=== PATIENT | female | born 1950 | race Caucasian/White ===

== ENCOUNTER → 2016-12-11 | Outpatient (CLI) | payer OTHER | LOC: FIMAGING 12:43 | PROVIDERS: ATTEND Family Medicine | DX: D25.1 Intramural leiomyoma of uterus (principal); R93.8 Abnormal findings on diagnostic imaging of other specified body structures; N83.202 Unspecified ovarian cyst, left side ==

== ENCOUNTER → 2017-03-23 | Outpatient (CLI) | payer OTHER | LOC: FIMAGING 14:11 | PROVIDERS: ATTEND Family Medicine | DX: R93.8 Abnormal findings on diagnostic imaging of other specified body structures (principal); D25.2 Subserosal leiomyoma of uterus; N83.202 Unspecified ovarian cyst, left side; N95.0 Postmenopausal bleeding; Z79.890 Hormone replacement therapy ==

== ENCOUNTER 2017-04-25 05:59 | Day surgery (SDC) | payer OTHER ==
--- NOTE | 2017-04-12 16:33 | GHP ---
[f rep st] PREOP HISTORY AND PHYSICAL DATE OF ADMISSION: 04/25/2017 ADMITTING DIAGNOSES: 1. Postmenopausal bleeding. 2. Thickened endometrium. HISTORY OF PRESENT ILLNESS: The patient is a 66-year-old nulliparous, who presented from her PCP's office with complaints of postmenopausal bleeding and a persistent thickened lining on ultrasound. Patient has been on hormone replacement therapy for 10 years, currently on 0.5 mg of estradiol daily and 100 mg of progesterone 3 times a week, as well as testosterone and doing well. Her first episode of spotting was noted October 2016 for 5 days, mostly when she wiped. Ultrasound done in November showed endometrial stripe to 8 mm with a leiomyomatous uterus and a left simple cyst 2.3 x 1.6 cm. Endometrial biopsy was done per patient and negative. Her progesterone use was increased to daily. She noticed she has put on 10 pounds and has headaches. Repeat ultrasound still shows a thickened lining despite the progesterone at 9 mm, decreased size in fibroids and decreased size in left simple cyst. She states the last episode of spotting was on April 08. She does state that she has pinkish spotting 3-4 days 2-3 times each month since October. PAST OBSTETRIC HISTORY: She is nulliparous. PAST GYNECOLOGIC HISTORY: Age of menarche was 10. She is postmenopausal, age 53. She is has been on hormone replacement therapy for 10 years now. The patient states she has not had any history of abnormal Pap smears and denies any exposure to sexually transmitted diseases. Last Pap was October 2016. Last mammogram 2 years ago and bone density 4 years ago. PAST MEDICAL HISTORY: Seasonal allergies, GERD, migraines with aura and stress urinary incontinence. PAST SURGICAL HISTORY: Laparoscopic cholecystectomy in the and a left bunionectomy 2004. CURRENT MEDICATIONS: Prilosec, Claritin, estradiol, progesterone, testosterone , vaginal cream. ALLERGIES: Penicillin and cephalosporin, reaction hives. FAMILY HISTORY: Mother and brother with hypertension. Mother with lung cancer and father with Duncan's, as well as Alzheimer disease. Both mother and father are . REVIEW OF SYSTEMS: A 10-point review of systems is negative. Pertinent positives noted in HPI. SOCIAL HISTORY: Patient is in a monogamous relationship. She is a retired nurse. She is on low-carb Mediterranean diet. Denies any tobacco use. Drinks alcohol 1-3 times per week. Denies any illicit drug use. Exercise 5-7 days per week. PHYSICAL EXAM: VITAL SIGNS: Stable. Patient is afebrile. GENERAL: Well- nourished, well-developed female. Alert oriented x3. No apparent distress. CARDIOVASCULAR: Regular rate and rhythm. LUNGS: Clear to auscultation bilaterally. ABDOMEN: Soft, nontender, nondistended. PELVIC: Deferred. EXTREMITIES: Normal to inspection, without edema. ASSESSMENT AND PLAN: Patient is a 66-year-old with postmenopausal bleeding and persistent thickened endometrium. 1. Discussed proceeding with surgery for both diagnostic and therapeutic treatment. Will proceed with a diagnostic hysteroscopy and a D and C. 2. Discussed its limitations, n.p.o. status and postop recovery. Surgical consents were obtained. Discussed risks, benefits and alternatives of surgery including, but not limited to, bleeding, infection and risk of uterine perforation. 3. Patient understands all risks of surgery and wants to proceed at this time. Surgery is scheduled for April 25 at 7:30 a.m. 4. Patient is allergic to penicillin. We will treat with clindamycin lemon picker to OR. 5. Sequential compression devices for deep venous thrombosis prophylaxis. /[id number]/MODL MTDD
[2017-04-25] MEDS ORDERED: CLINDAMYCIN 900 MG/DEXTROSE 50 ML IV ONE (06:00)
[2017-04-25] MEDS ORDERED: LR 1,000 ML IV SCH (06:09)
[2017-04-25] MEDS ORDERED: LR 1,000 ML IV ONE (06:20)
[2017-04-25] MEDS ORDERED: LIDOCAINE 1% 2 ML INJ ID PRN (06:20)
[2017-04-25 06:41] VITALS: PULSE 69
--- NOTE | 2017-04-25 06:47 | PDHPUP ---
History & Physical Update H&P update statement: This history and physical update is based on an assessment of the patient which was completed after admission or registration (within 24 hours), but prior to the surgery/procedure. H&P update: H&P reviewed & patient examined, no change in patient's condition since H&P completed
[2017-04-25] MEDS ORDERED: SILVER NITRATE APPLICATOR 1 APPL TP ONE (06:50)
[2017-04-25] MEDS ORDERED: MIDAZOLAM 2 MG/2 ML VIAL IVP ONE (06:57)
--- NOTE | 2017-04-25 06:59 | PDANEPAE ---
ANE History of Present Illness here for Hysteroscopy ANE Past Medical History - Cardiovascular History Hx Hypertension: No Hx Arrhythmias: No Hx Chest Pain: No Hx Coronary Artery / Peripheral Vascular Disease: No Hx CHF / Valvular Disease: No Hx Palpitations: No - Pulmonary History Hx COPD: No Hx Asthma/Reactive Airway Disease: No Hx Recent Upper Respiratory Infection: No Hx Oxygen in Use at Home: No Hx Sleep Apnea: No Sleep Apnea Screening Result - Last Documented: Negative - Neurologic History Hx Cerebrovascular Accident: No Hx Seizures: No Hx Dementia: No Neurologic History Comment: MIGRAINES - Endocrine History Hx Diabetes: No - Renal History Hx Renal Disorders: Yes Renal History Comment: STRESS INCONT MILD - Liver History Hx Hepatic Disorders: Yes Hepatic History Comment: CHOLECYSTECTOMY - Neurological & Psychiatric Hx Hx Neurological and Psychiatric Disorders: No - Cancer History Hx Cancer: No Cancer History Comment: PRE CA LESIONS - Congenital Disorder History Hx Congenital Disorders: No - GI History Hx Gastrointestinal Disorders: Yes Gastrointestinal History Comment: GERD - Other Health History Other Health History: SEASONAL ALLERGIES - Chronic Pain History Chronic Pain: No - Surgical History Prior Surgeries: LAP BARRON 1994. L BUNIONECTOMY 2004 ANE Review of Systems Review of systems is: negative Review of Systems: - Exercise capacity Exercise capacity: >=4 METS METS (RN): 5 METS ANE Patient History - Allergies Allergies/Adverse Reactions: Cephalosporins Allergy (Intermediate, Verified 04/13/17 11:53) Hives Penicillins Allergy (Intermediate, Verified 04/13/17 11:53) Hives - Home Medications Home medications: home medication list seen and reviewed Home Medications: Claritin 04/13/17 [Last Taken 04/23/17] Estradiol 04/13/17 [Last Taken 04/24/17 19:00] Herbals/Supplements -Info Only 04/13/17 [Last Taken 04/18/17] Prilosec 20 mg 04/13/17 [Last Taken 04/18/17] Progesterone 04/13/17 [Last Taken 04/18/17] Testosterone 04/13/17 [Last Taken 04/18/17] - NPO status NPO Status: no food or drink >8 hours NPO Since - Liquids (Date): 04/24/17 NPO Since - Liquids (Time): 20:00 NPO Since - Solids (Date): 04/24/17 NPO Since - Solids (Time): 19:00 - Anes Hx Anes Hx: no prior problems - Smoking Hx Smoking Status: Former smoker - Family Anes Hx Family Hx Anesthesia Complications: NEG ANE Labs/Vital Signs - Vital Signs Blood Pressure: 148/83 Heart Rate: 69 Respiratory Rate: 16 O2 Sat (%): 97 Height: 167.64 cm Weight: 67.585 kg ANE Physical Exam - Airway Neck exam: FROM Mallampati Score: Class 1 - Pulmonary Pulmonary: no respiratory distress - Cardiovascular Cardiovascular: regular rate and rhythym - ASA Status ASA Status: II ANE Anesthesia Plan Anesthesia Plan: GA with mask
[2017-04-25] MEDS ORDERED: PROPOFOL/EMULSION 500 MG/50 ML BOTTLE IV ONE (07:03)
[2017-04-25] MEDS ORDERED: fentaNYL 100 MCG/2 ML INJ ONE (07:06)
[2017-04-25] MEDS ORDERED: ONDANSETRON 4 MG/2 ML VIAL ONE (07:07)
[2017-04-25] MEDS ORDERED: NALOXONE HCL 0.4 MG/ML INJ IVP PRN (07:32)
[2017-04-25] MEDS ORDERED: ONDANSETRON 4 MG/2 ML VIAL IVP PRN (07:32)
[2017-04-25] MEDS ORDERED: HYDROmorphONE/DILAUDID 1 MG/ML INJ IVP PRN (07:32)
[2017-04-25] MEDS ORDERED: ALBUTEROL 3 ML DEYVIAL IH PRN (07:32)
[2017-04-25] MEDS ORDERED: HYDROCODONE/APAP 5/325 TAB PO PRN (07:32)
[2017-04-25] MEDS ORDERED: OXYCODONE/APAP 5/325 TAB PO PRN (07:32)
[2017-04-25] MEDS ORDERED: fentaNYL 100 MCG/2 ML INJ IVP PRN (07:32)
[2017-04-25] MEDS ORDERED: KETOROLAC 30 MG/1 ML SDV ONE (07:45)
--- NOTE | 2017-04-25 07:56 | POSTOPPROG ---
Post Op Note Date of Operation: 04/25/17 Surgeon: Ingris Tellez [employer] Operator: None Anesthesiologist: Jarvis Youngblood Anesthesia: LMA Pre-op Diagnosis: PMB; Thickened endometrium Post-op Diagnosis: PMB; Thickened endometrium; Polyps Indication: 66 y/o nulliparous with PMB x 5 months and thickened endo on u/s Procedure: Dx Hysteroscopy; D&C Findings: Uterine cavity w/ polyp x 2; endo not too thickened; ostia seen b/l Inf/Abcess present in the surg proc area at time of surgery?: No Depth: Superfical (Skin SQ) EBL: Minimal (5cc) Total fluids administered: 500 cc LR Complications: None Specimen(s): Endometrial curettings and polyp x 2
[2017-04-25 08:14] VITALS: TEMP 97.5
[2017-04-25 08:53] VITALS: RESP 16
[2017-04-25] MEDS ORDERED: HYDROCODONE/APAP 5/325 TAB ONE (09:05)
--- NOTE | 2017-04-25 09:40 | POSTANESTH ---
Post Anesthetic Evaluation Cardiovascular Status: Normal, Stable Respiratory Status: Normal, Stable Level of Consciousness/Mental Status: Can Participate in Eval Pain Control: Adequate, Prn Tx Ordered Nausea/Vomiting Control: Adequate, Prn Tx Ordered Complications Possibly Related to Anesthesia: None Noted
[2017-04-25 10:09] VITALS: BP 121/71; O2SAT 98
--- NOTE | 2017-04-25 12:21 | GOP ---
[f rep st] OPERATIVE REPORT DATE OF OPERATION: 04/25/2017 SURGEON: Ingris Tellez DO PRODUCTION LEAD: None. ANESTHESIA: LMA. ANESTHESIOLOGIST: Jarvis Youngblood MD PREOPERATIVE DIAGNOSIS: 1. Postmenopausal bleeding. 2. Thickened endometrium. POSTOPERATIVE DIAGNOSIS: 1. Postmenopausal bleeding. 2. Thickened endometrium. 3. Endometrial polyps. PROCEDURE PERFORMED: Diagnostic hysteroscopy, dilation and curettage. FINDINGS: On bimanual exam, uterus was anteverted, normal size, mobile, nontender. Adnexa not palpable. The cervix is nulliparous and stenotic. In the endometrial cavity, there was noted to be polyps x2, and a minimal amount of proliferative appearing endometrium was noted. No direct intraluminal lesions seen. SPECIMENS: Endometrial curettings, polyps. ESTIMATED BLOOD LOSS: 5 cc. INDICATIONS: Patient is a 66-year-old nulliparous, who has had 5 months' duration of postmenopausal bleeding, as well as thickened endometrium on ultrasound. We discussed proceeding with hysteroscopy, D and C, for diagnostic purposes, as well as therapeutic. The patient agrees with the plan. We discussed the risks, benefits, alternatives of the procedure including, but not limited to, bleeding, infection, and risk of uterine perforation. The patient understands all risks at this time, and wants to proceed with surgery. DESCRIPTION OF PROCEDURE: Patient was taken to the operating room, where anesthesia was obtained without difficulty. The patient was placed in dorsal lithotomy position and properly prepped and draped in usual sterile manner. An open sided speculum was placed into the vagina. The anterior lip of the cervix was grasped with an Allis clamp. Cervical os appeared to be stenotic and the endocervical canal was progressively dilated with Hegar up to a #7 Hegar. The uterus was then sounded to a depth of 7 cm. The hysteroscope was then introduced into the uterine cavity, using sterile saline solution as a distending media, with attached video camera. The endometrial cavity was distended with fluids and the cavity was visualized. There were 2 polyps noted in the cavity. The cornual areas were visualized bilaterally with corresponding tubal ostia. A minimal amount of proliferative appearing endometrium was noted. No direct intraluminal lesions seen. Several pictures were taken of the endometrial cavity. The hysteroscope was then removed without difficulty. We then turned our attention to a large, sharp curette. This was advanced up into the uterus to obtain a moderate amount of tissue, including the 2 polyps. This was sent to pathologist for analysis. All remaining instruments were removed from the vagina. Hemostasis was noted. The patient tolerated the procedure well. There were no complications. The patient was then awakened, taken out of dorsal lithotomy position, and sent to the PACU in satisfactory postoperative condition, stable. COMPLICATIONS: None. IV FLUIDS: 500 cc LR. URINE OUTPUT: Patient emptied her bladder prior to procedure. /[id number]/MODL MTDD
== END 2017-04-25 10:00 | disposition home or self-care (01) ==
LOC: FSGY 05:59
PROVIDERS: ATTEND Obstetrics & Gynecology
PROC: 0UDB8ZX Extraction of Endometrium, Via Natural or Artificial Opening Endoscopic, Diagnostic (ICD-10-PCS; principal; 2017-04-25 07:15)
DX: N95.0 Postmenopausal bleeding (principal); N84.0 Polyp of corpus uteri; R93.8 Abnormal findings on diagnostic imaging of other specified body structures; N39.3 Stress incontinence (female) (male); K21.9 Gastro-esophageal reflux disease without esophagitis; G43.909 Migraine, unspecified, not intractable, without status migrainosus; Z79.890 Hormone replacement therapy; Z88.0 Allergy status to penicillin
CPT/HCPCS: J1885; J2250; J2405; J2704; J3010